=== PATIENT | female | born 1995 ===

== ENCOUNTER 2017-09-20 18:57 | Emergency (ER) | payer OTHER ==
[2017-09-20 18:57] VITALS: BMI 20.1
[2017-09-20 19:40] VITALS: BP 119/85; RESP 18; TEMP 98.1; O2SAT 98
[2017-09-20 20:08] VITALS: PULSE 96
[2017-09-20] MEDS ORDERED: Lidocaine 1% MPF (30 ml) Inj ONE (20:11)
[2017-09-20] MEDS ORDERED: Povidone Iodine Topical 10% Sol ONE (20:11)
--- NOTE | 2017-09-20 21:18 | ED PDOC ---
HPI: Female Pain Time Seen by Provider: 09/20/17 19:41 Chief Complaint (Nursing): Abnormal Skin Integrity Chief Complaint (Provider): Abscess History Per: Patient Onset/Duration Of Symptoms: Days (3x) Current Symptoms Are (Timing): Still Present Quality Of Discomfort: "Pain" Additional Complaint(s): 21 year old female presents to the ED for an evaluation of painful lump on left labia. States she has developed the abscess 3 days ago. Denies trauma, fever, dysuria or hematuria. PMD: [place] Past Medical History Reviewed: Historical Data, Nursing Documentation, Vital Signs Vital Signs: Last Vital Signs Temp 98.1 F 09/20/17 19:37 Pulse 96 H 09/20/17 20:08 Resp 18 09/20/17 19:37 BP 119/85 09/20/17 19:37 Pulse Ox 98 09/20/17 19:37 - Medical History PMH: No Chronic Diseases - Surgical History Surgical History: Appendectomy - Family History Family History: States: Unknown Family Hx - Immunization History Hx Tetanus Toxoid Vaccination: Yes Hx Influenza Vaccination: Yes Hx Pneumococcal Vaccination: No - Home Medications Home Medications: Ambulatory Orders Medication Instructions Recorded Doxycycline Monohydrate [Mondoxyne 100 mg PO BID #14 capsule 08/26/17 Nl] Acetaminophen with Codeine 1 each PO Q6 PRN #6 tablet 09/20/17 [Tylenol with Codeine #3 Tablet] - Allergies Allergies/Adverse Reactions: Allergies Allergy/AdvReac Type Severity Reaction Status Date / Time No Known Allergies Allergy Verified 08/26/17 22:11 Review of Systems ROS Statement: Except As Marked, All Systems Reviewed And Found Negative Constitutional: Negative for: Fever, Other (trauma) Genitourinary Female: Positive for: Other (painful lump on left labia). Negative for: Dysuria, Hematuria Physical Exam - Reviewed Nursing Documentation Reviewed: Yes Vital Signs Reviewed: Yes - Physical Exam Appears: Positive for: Non-toxic, No Acute Distress, In Acute Distress (mild painful) Head Exam: Positive for: ATRAUMATIC, NORMAL INSPECTION, NORMOCEPHALIC Skin: Positive for: Normal Color, Warm, Dry. Negative for: Rash Eye Exam: Positive for: Normal appearance Gastrointestinal/Abdominal: Positive for: Normal Exam, Soft. 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 Negative for: External Exam Normal (fluctuance, tenderness and swelling to left labia) Neurologic/Psych: Positive for: Alert, Oriented (x3). Negative for: Motor/ Sensory Deficits - ECG O2 Sat by Pulse Oximetry: 98 (RA) Pulse Ox Interpretation: Normal Medical Decision Making Medical Decision Making: Time: 1940 Initial Plan: --Reevaluation Case discussed with Dr. Lorenzana and he will drain abscess. Abscess drained by Dr. Lorenzana in ED and states pt. does not require antibiotic Rx and can f/u in his office on Monday. Pt. searched on [place] [employer] aware and show no previous narcotic Rx. Pt. advised to use Motrin first and if it provides pain relief to not use Tylenol #3. Informed o dangers of addiction with Tylenol #3. Scribe Attestation: Documented by Gilberto Sánchez, acting as a scribe for Jorge Marroquin PA-C. Provider Scribe Attestation: All medical record entries made by the Scribe were at my direction and personally dictated by me. I have reviewed the chart and agree that the record accurately reflects my personal performance of the history, physical exam, medical decision making, and the department course for this patient. I have also personally directed, reviewed, and agree with the discharge instructions and disposition. Disposition - Clinical Impression Clinical Impression: Bartholin's cyst - Patient ED Disposition Is Patient to be Admitted: No - Disposition Referrals: Lloyd Lorenzana MD [Staff Provider] - Disposition: Routine/Home Disposition Time: 23:00 Condition: STABLE Additional Instructions: Follow up with Dr. Lorenzana in 1 week for further evaluation. Return to ED immediately if symptoms worsen. Prescriptions: Acetaminophen with Codeine [Tylenol with Codeine #3 Tablet] 1 each PO Q6 PRN #6 tablet PRN Reason: Pain Instructions: Bartholin's Gland Cyst Forms: [employer] (Romans[employer]) Print Language: IRISH
[2017-09-20] MEDS ORDERED: Oxycodone/Acetaminophen 5/325 mg Tab ONE (22:09)
[2017-09-20] MEDS: Oxycodone/Acetaminophen 5/325 mg Tab PO STA (22:11)
== END 2017-09-20 23:26 | disposition home or self-care (01) ==
LOC: H.ER 18:57
DX: N75.0 Cyst of Bartholin's gland (principal)